=== PATIENT | female | born 1945 | race Caucasian/White ===

== ENCOUNTER → 2018-07-01 | Outpatient (CLI) | payer MEDICARE, OTHER ==
[~2018-07-01] VITALS: Ht 165.1 cm; Wt 93.4 kg
[2018-07-01] VITALS (8 sets, daily range): BP systolic 134–168; BP diastolic 53–87
[~2018-07-01] MED LIST: ASPIR 8181 MG PO; CALCIUM + D3 E1 EACH PO; FISH OIL 1,001000 M2 PO; LIPITOR10 MG PO; LISINOPRIL10 MG PO; NITROGLYCERIN0.4 MG SUBLING; VITAMIN D2000 UNIT PO
[2018-07-01 11:09] LABS: HEMATOCRIT 41.3 % (37.0-47.0); HEMOGLOBIN 13.7 gm/dL (12.0-15.0); MCH 29.6 pg (26.0-34.0); MCHC 33.1 g/dL (28.0-37.0); MCV 89.5 fL (80.0-100.0); MPV 8.5 fl. (7.2-11.1); RBC 4.62 mil/uL (4.20-5.00); RDW-CV 13.5 % (10.5-14.5); WBC 8.7 thou/uL (4.0-11.0)
[2018-07-01 11:25] LABS: APTT 25.4 Seconds (25.0-31.3); INR 0.9; PROTIME 9.6 Seconds (9.20-11.50)
[2018-07-01 11:30] LABS: ANION GAP 6 mmol/L (7-16); BUN 13 mg/dL (7-18); CALCIUM 9.6 mg/dL (8.5-10.1); CHLORIDE 103 mmol/L (98-107); CHOLESTEROL 144 mg/dL (<200); CO2 28 mmol/L (21-32); CREATININE 0.9 mg/dL (0.6-1.3); GLUCOSE 100 mg/dL (70-99); HDL CHOLESTEROL 61 mg/dL (>40); LDL CHOLESTEROL 65 mg/dL (<100); POTASSIUM 4.1 mmol/L (3.5-5.1); SODIUM 137 mmol/L (136-145); TC:HDL 2.4 Ratio (Not establshd); TRIGLYCERIDE 91 mg/dL (<150); VLDL 18 mg/dL (<40)
[2018-07-01 11:33] LABS: SERUM ASSESSMENT Clear
--- NOTE | 2018-07-02 10:21 | EKG ---
[place] [address] ELECTROCARDIOGRAM REPORT Name: ROSALIND KELLY Room: [facility]#: [id number] Admission: 07/01/18 Attend Phys: Dawson Owusu MD Discharge: Date of : 45 Report #: [id number] THIS REPORT FOR: //name// [facility] Test Date: 2018-07-01 Test Time: 11:06:41 Pat Name: ROSALIND KELLY Department: Room: Gender: F Cad Draftsman: : 1945 Requested By: Dawson Owusu Order Number: [id number] Ella MD: Kennedy Vázquez Measurements Intervals [place] Rate: 62 P: 81 NE: 169 QRS: 78 QRSD: 93 T: 76 QT: 398 QTc: 405 Interpretive Statements Sinus rhythm No previous ECG available for comparison Electronically Signed On 07-02-2018 10:20:53 [employer] by Kennedy Vázquez [email or web address] <ELECTRONICALLY SIGNED> By: Kennedy Vázquez MD, [facility] 07/02/18 1020 1106 1106 Kennedy Vázquez MD, FACC /EPI
== END | disposition home or self-care (01) ==
LOC: M.CL 09:16
PROVIDERS: Internal Medicine Cardiovascular Disease
DX: I25.10 Atherosclerotic heart disease of native coronary artery without angina pectoris (principal); Z90.49 Acquired absence of other specified parts of digestive tract; Z98.890 Other specified postprocedural states; Z88.8 Allergy status to other drugs, medicaments and biological substances; Z79.82 Long term (current) use of aspirin; Z79.899 Other long term (current) drug therapy; Z79.01 Long term (current) use of anticoagulants

== ENCOUNTER → 2020-11-01 | Outpatient (CLI) | payer MEDICARE, OTHER | LOC: M.RAD 14:21 | PROVIDERS: ATTEND Nurse Practitioner Family | DX: M81.0 Age-related osteoporosis without current pathological fracture (principal); N95.1 Menopausal and female climacteric states; E28.39 Other primary ovarian failure ==